=== PATIENT | male | born 1980 | race Caucasian/White ===

== ENCOUNTER 2017-07-10 15:08 | Emergency (ER) | payer MEDICAID | END 2017-07-10 16:12 | disposition home or self-care (01) | LOC: FTE 15:08 → E/R 16:12 | DX: J06.9 Acute upper respiratory infection, unspecified (principal) | CPT/HCPCS: 99284 ==

== ENCOUNTER 2018-02-05 09:45 | Emergency (ER) | payer MEDICAID | END 2018-02-05 10:51 | disposition home or self-care (01) | LOC: FTE 09:45 | DX: Z48.02 Encounter for removal of sutures (principal) | CPT/HCPCS: 99282; Z7502 ==

== ENCOUNTER 2018-09-12 07:05 | Emergency (ER) | payer MEDICAID ==
[2018-09-12] MEDS: DEXAMETHASONE 10 MG/ML 1 ML INJ IM (08:19)
[2018-09-12] MEDS: KETOROLAC 30 MG INJ IM (08:19)
== END 2018-09-12 08:25 | disposition home or self-care (01) ==
LOC: FTE 08:25
DX: M54.5 Low back pain (principal)
CPT/HCPCS: 96372; 99284-25